=== PATIENT | female | born 1950 | race Caucasian/White ===

== ENCOUNTER 2017-01-07 23:35 | Emergency (ER) | payer MEDICARE, OTHER ==
[~2017-01-07] VITALS: Ht 160 cm; Wt 68.0 kg
[~2017-01-07 23:35] MED LIST: [UNRECOGNIZED DRUG - REMARK]
[2017-01-07 23:40] VITALS: BP_SYST 158
[2017-01-07] MEDS ORDERED: ASPIRIN 325 MG TABLET PO ONE (23:45)
[2017-01-08] MEDS ORDERED: ONDANSETRON HCL 4 MG/2 ML VIAL IVP ONE
[2017-01-08] MEDS ORDERED: NITROGLYCERIN 0.4 MG TAB.SUBL SL ONE ×2 (00:04)
[2017-01-08 00:10] LABS: POTASSIUM 3.9 mmol/L (3.5-5.1)
[2017-01-08 00:11] LABS: CALCIUM 9.9 mg/dL (8.4-11.0); CREATININE 0.86 mg/dL (0.55-1.30)
[2017-01-08 00:15] LABS: TOTAL BILIRUBIN 0.2 mg/dL (0.0-1.0)
[2017-01-08 00:36] LABS: BASOPHILS % (AUTO) 0.3 % (0.0-2.0); EOSINOPHILS % (AUTO) 0.3 % (0.0-4.0); HEMATOCRIT 39.6 % (36-48); HEMOGLOBIN 13.4 g/dL (12.0-16.0); LYMPHOCYTES # (AUTO) 1.3 K/uL (1.0-5.5); MEAN CORPUSCULAR HEMOGLOBIN 31 pg (27-31); MEAN CORPUSCULAR HGB CONC 34 % (32-36); MEAN CORPUSCULAR VOLUME 92 fL (79.0-98.0); MONOCYTES # (AUTO) 0.6 K/uL (0.0-1.0); MONOCYTES % (AUTO) 4.9 % (1.7-9.3); NEUTROPHILS # (AUTO) 9.7 K/uL (1.8-7.7); NEUTROPHILS % (AUTO) 83.5 % (40.0-70.0); PLATELET COUNT (AUTO) 309 K/uL (130-430); RED BLOOD CELL COUNT(AUTO) 4.33 MIL/uL (4.2-6.2); RED CELL DISTRIBUTION WIDTH 12.5 % (9.0-15.0); WHITE BLOOD COUNT (AUTO) 11.6 K/uL (4.8-10.8)
[2017-01-08] MEDS ORDERED: NACL 0.9% 1,000 ML IV ONE ×2 (01:45)
[2017-01-08] MEDS ORDERED: VANCOMYCIN HCL 1,000 MG in NS 250 ML IV ONE (02:00)
[2017-01-08] MEDS ORDERED: PIPERACILLIN/TAZO 3.375 GM in NS 50 ML IV ONE (02:00)
[2017-01-08] MEDS ORDERED: PIPERACILLIN/TAZOBACTAM 3.375 GM/VIAL (ZOSYN) IV ONE (02:03)
[2017-01-08] MEDS ORDERED: VANCOMYCIN HCL 1000 MG/VIAL IV ONE (02:16)
[2017-01-08] MEDS ORDERED: MORPHINE 4 MG/ML INJ. SYRINGE IVP ONE ×2 (03:00)
[2017-01-08 03:09] VITALS: BP_SYST 148
== END 2017-01-08 03:09 | disposition short-term general hospital (02) ==
LOC: SED 23:35
DX: K81.0 Acute cholecystitis (principal); K83.8 Other specified diseases of biliary tract; D72.828 Other elevated white blood cell count; R07.89 Other chest pain
CPT/HCPCS: 36415; 71010; 76700; 80053; 83690; 83880; 84484; 85025; 85379; 93005; 96361; 96365; 96375; 96376; 99285; J2270; J2405; J2543; J3370; J7030; J7050

== ENCOUNTER 2017-04-06 10:39 | Emergency (ER) | payer OTHER ==
[~2017-04-06] VITALS: Ht 160 cm; Wt 65.3 kg
[2017-04-06 10:44] VITALS: BP_SYST 138
[2017-04-06] MEDS ORDERED: IPRATROPIUM/ALBUTEROL SULFATE 3 ML AMPUL.NEB INH ONE (11:15)
[2017-04-06 11:26] LABS: BASOPHILS % (AUTO) 0.6 % (0.0-2.0); EOSINOPHILS % (AUTO) 0.1 % (0.0-4.0); HEMOGLOBIN 13.1 g/dL (12.0-16.0); LYMPHOCYTES # (AUTO) 0.4 K/uL (1.0-5.5); LYMPHOCYTES % (AUTO) 7.6 % (20.5-51.5); MEAN CORPUSCULAR HEMOGLOBIN 31 pg (27-31); MEAN CORPUSCULAR HGB CONC 34 % (32-36); MEAN CORPUSCULAR VOLUME 91 fL (79.0-98.0); MONOCYTES # (AUTO) 0.4 K/uL (0.0-1.0); MONOCYTES % (AUTO) 8.2 % (1.7-9.3); NEUTROPHILS # (AUTO) 4.5 K/uL (1.8-7.7); NEUTROPHILS % (AUTO) 83.5 % (40.0-70.0); PLATELET COUNT (AUTO) 266 K/uL (130-430); RED CELL DISTRIBUTION WIDTH 13.1 % (9.0-15.0); WHITE BLOOD COUNT (AUTO) 5.3 K/uL (4.8-10.8)
[2017-04-06 11:35] LABS: CALCIUM 8.9 mg/dL (8.4-11.0); CREATININE 0.82 mg/dL (0.55-1.30); POTASSIUM 3.6 mmol/L (3.5-5.1)
[2017-04-06 11:41] LABS: ALBUMIN 3.8 g/dL (3.4-4.8); TOTAL BILIRUBIN 0.2 mg/dL (0.0-1.0)
[2017-04-06 12:54] VITALS: BP_SYST 130
== END 2017-04-06 12:54 | disposition home or self-care (01) ==
LOC: SED 10:39
DX: J06.9 Acute upper respiratory infection, unspecified (principal)
CPT/HCPCS: 36415; 71010; 80053; 85025; 86710; 94640; 99285

== ENCOUNTER 2019-01-25 18:45 | Emergency (ER) | payer BC, OTHER ==
[~2019-01-25] VITALS: Ht 160 cm; Wt 66.2 kg
[2019-01-25 18:50] VITALS: BP_SYST 133
[2019-01-25] MEDS ORDERED: IBUPROFEN 400 MG TABLET PO ONE (21:15)
[2019-01-25] MEDS ORDERED: ACETAMINOPHEN/CODEINE 300 MG-30 MG TABLET PO ONE (21:15)
[2019-01-25 22:45] VITALS: BP_SYST 128
== END 2019-01-25 22:44 | disposition home or self-care (01) ==
LOC: SED 18:45
DX: M25.562 Pain in left knee (principal); R03.0 Elevated blood-pressure reading, without diagnosis of hypertension
CPT/HCPCS: 73564; 93971; 99284

== ENCOUNTER 2021-07-30 19:18 | Emergency (ER) | payer BC, OTHER ==
[~2021-07-30] VITALS: Ht 162.6 cm; Wt 67.1 kg
[2021-07-30 19:38] VITALS: BP_SYST 148
[2021-07-30] MEDS ORDERED: ALPRAZolam 0.25 MG TABLET PO ONE (19:45)
[2021-07-30] MEDS ORDERED: ALPR0.25 PO (21:21)
[2021-07-30 21:39] VITALS: BP_SYST 147
== END 2021-07-30 21:39 | disposition home or self-care (01) ==
LOC: SED 19:18
DX: F41.0 Panic disorder [episodic paroxysmal anxiety] (principal); Z91.040 Latex allergy status; Z79.899 Other long term (current) drug therapy
CPT/HCPCS: 71045; 93005; 99283

== ENCOUNTER 2021-10-17 14:17 | Emergency (ER) | payer BC, OTHER ==
[~2021-10-17] VITALS: Ht 162.6 cm; Wt 65.8 kg
[~2021-10-17 14:17] MED LIST changes: +ALPR0.25 PO
[2021-10-17 14:28] VITALS: BP_SYST 137
--- NOTE | 2021-10-17 14:28 | NUR ---
PT TRAIGED AND PLACED IN ED WAITING ROOM FOR AVAILABLE BED IN MAIN ED. ER MD AWARE OF MSE NEEDS
--- NOTE | 2021-10-17 14:30 | NUR ---
PT BIB DAUGHTER REPORTS WORSENING STRESS AT WORK, ANXIETY AND HAVING CHEST PRESSURE. TEARFUL ON ARRIVAL, PT IS AMBULATORY, [id number], VSS
[2021-10-17 15:12] LABS: BASOPHILS # (AUTO) 0.1 K/uL (0.0-0.2); BASOPHILS % (AUTO) 1.6 % (0.0-2.0); EOSINOPHILS # (AUTO) 0.1 K/uL (0.0-0.4); EOSINOPHILS % (AUTO) 1.1 % (0.0-4.0); HEMATOCRIT 38.1 % (36-48); HEMOGLOBIN 12.9 g/dL (12.0-16.0); LYMPHOCYTES # (AUTO) 1.5 K/uL (1.0-5.5); LYMPHOCYTES % (AUTO) 23.4 % (20.5-51.5); MEAN CORPUSCULAR HEMOGLOBIN 31 pg (27-31); MEAN CORPUSCULAR HGB CONC 34 % (32-36); MEAN CORPUSCULAR VOLUME 92 fL (79.0-98.0); MONOCYTES # (AUTO) 0.5 K/uL (0.0-1.0); MONOCYTES % (AUTO) 8.4 % (1.7-9.3); NEUTROPHILS # (AUTO) 4.3 K/uL (1.8-7.7); NEUTROPHILS % (AUTO) 65.5 % (40.0-70.0); PLATELET COUNT (AUTO) 306 K/uL (130-430); RED BLOOD CELL COUNT(AUTO) 4.15 MIL/uL (4.2-6.2); RED CELL DISTRIBUTION WIDTH 13.3 % (9.0-15.0); WHITE BLOOD COUNT (AUTO) 6.6 K/uL (4.8-10.8)
[2021-10-17 15:15] LABS: ANION GAP 8 (5-15); CALCIUM 9.2 mg/dL (8.4-11.0); CHLORIDE 104 mmol/L (98-107); CREATININE 0.87 mg/dL (0.55-1.30); GLUCOSE 94 mg/dL (70-99); POTASSIUM 4.2 mmol/L (3.5-5.1); SODIUM SERUM 139 mmol/L (136-145); UREA NITROGEN, BLOOD 22 mg/dL (8-21)
[2021-10-17 15:17] LABS: GFR AFRICAN AMERICAN 83 mL/min (>90)
[2021-10-17 15:24] LABS: ALANINE AMINOTRANSFERASE 28 U/L (12-78); ALBUMIN 3.5 g/dL (3.4-4.8); ASPARTATE AMINOTRANSFERASE 23 U/L (10-37); TOTAL BILIRUBIN 0.4 mg/dL (0.0-1.0)
--- NOTE | 2021-10-17 15:27 | NUR ---
COVID-19 swabbed, sent to lab.
--- NOTE | 2021-10-17 16:40 | NUR ---
ER DR. LAY EXAMINING PT IN TRIAGE
[2021-10-17] MEDS ORDERED: HYDR-4039 PO (16:52)
--- NOTE | 2021-10-17 17:11 | NUR ---
CALLED FOR DISCHARGE, NO ANSWER
[2021-10-17 17:16] VITALS: BP_SYST 137
--- NOTE | 2021-10-17 17:20 | NUR ---
Patient given written and verbal discharge instructions and verbalizes understanding. ER MD discussed with patient the results and treatment provided. Patient in stable condition. ID arm band removed. Rx of APRESOLINE given. Patient educated on pain management and to follow up with PMD. Pain Scale 0/10. Opportunity for questions provided and answered. Medication side effect fact sheet provided.
== END 2021-10-17 17:16 | disposition home or self-care (01) ==
LOC: SED 14:17
DX: F43.0 Acute stress reaction (principal); R07.89 Other chest pain; Z91.040 Latex allergy status; Z79.899 Other long term (current) drug therapy; Z20.822 Contact with and (suspected) exposure to COVID-19
CPT/HCPCS: 36415; 71045; 80053; 83880; 84484; 85025; 93005; 99285

== ENCOUNTER 2022-04-27 11:02 | Emergency (ER) | payer BC ==
[~2022-04-27] VITALS: Ht 160 cm; Wt 68.0 kg
[~2022-04-27 11:02] MED LIST changes: +HYDR-4039 PO
[2022-04-27 11:10] VITALS: BP_SYST 178
== END 2022-04-27 14:20 | disposition left against medical advice (07) ==
LOC: SED 11:02
DX: R51.9 Headache, unspecified (principal); R42 Dizziness and giddiness; R53.1 Weakness; Z53.21 Procedure and treatment not carried out due to patient leaving prior to being seen by health care provider